=== PATIENT | female | born 1970 | race Caucasian/White ===

== ENCOUNTER → 2024-06-23 | Outpatient (CLI) | payer MEDICARE, MEDICAID, SELFPAY ==
--- NOTE | 2024-06-23 06:44 | ECHOD_ITS ---
Reason For Study Reason For Study: ASSESS/RULE OUT MVP Procedure This was a 2D Doppler, Color Flow transthoracic echocardiogram. Exam performed in department. Left Ventricle Normal LV size. The left ventricular ejection fraction is 60 %. No regional wall motion abnormalities noted. Right Ventricle Normal RV size. Normal systolic function. Atria Normal left atrium. Normal right atrium. Mitral Valve Normal mitral valve. There is no mitral valve prolapse. Tricuspid Valve Normal tricuspid valve. Aortic Valve Trisinus/trileaflet aortic valve. Pulmonic Valve Normal pulmonic valve. Great Vessels Normal aortic root. The pulmonary artery is normal size. Inferior vena cava collapse with respiration. Pericardium/Pleural No pericardial effusion. MMode/2D Measurements & Calculations LVIDd: 4.5 cm IVSd: 0.92 cm Ao root diam: 3.2 cm LVIDs: 3.2 cm LVPWd: 0.86 cm RVDd: 2.9 cm FS: 28.1 % LAV(MOD-bp): 51.4 ml LVAd ap4: 29.9 cm2 SV(MOD-sp4): 52.2 ml LAV(MOD-bp) Indexed: 26.9 ml/m2 LVLd ap4: 8.2 cm SI(MOD-sp4): 27.3 ml/m2 LAV(MOD-sp2): 50.8 ml EDV(MOD-sp4): 91.1 ml LAV(MOD-sp4): 50.7 ml EDV(sp4-el): 92.6 ml LVAs ap4: 18.5 cm2 LVLs ap4: 7.4 cm ESV(MOD-sp4): 39.0 ml ESV(sp4-el): 39.2 ml EF(MOD-sp4): 57.2 % EF(sp4-el): 57.6 % SV(sp4-el): 53.4 ml LA A4 area: 17.9 cm2 LA dimension(2D): 3.7 cm RA A4 area: 10.1 cm2 TAPSE: 1.7 cm Time Measurements MV dec time: 0.25 sec Doppler Measurements & Calculations MV E max homero: 47.2 cm/sec Lat Peak E' Homero: 11.4 cm/sec Med Peak E' Homero: 8.9 cm/sec MV A max homero: 61.2 cm/sec E/E' lat: 4.1 E/E' med: 5.3 MV E/A: 0.77 Ao V2 max: 114.7 cm/sec LV V1 max: 85.6 cm/sec MV dec slope: 189.9 cm/sec2 Ao max P.3 mmHg LV V1 max P.9 mmHg Ao V2 mean: 81.3 cm/sec LV V1 mean P.5 mmHg Ao mean P.0 mmHg LV V1 mean: 57.9 cm/sec Ao V2 VTI: 29.3 cm LV V1 VTI: 19.1 cm AV (velocity ratio): 0.65 PA V2 max: 72.9 cm/sec ECHO/Echo Complete Interpretation Summary The left ventricular ejection fraction is 60 %. Normal LV size. Normal mitral valve. There is no mitral valve prolapse Ordering Physician: Teo Curry Referring Physician: Howie Bennett Performed By: Shantel Oneill, RASHIDA, RVT
== END | disposition home or self-care (01) ==
PROVIDERS: PCP Legal Medicine; Referring Provider Psychiatry & Neurology Neurology; Visit Provider Psychiatry & Neurology Neurology
DX: I34.1 Nonrheumatic mitral (valve) prolapse (principal)
CPT/HCPCS: 93306